=== PATIENT | female | born 1960 | race Caucasian/White ===

== ENCOUNTER → 2016-07-12 | Outpatient (CLI) | payer BC ==
--- NOTE | 2016-07-12 15:28 | CARD ---
APPROVED REPORT EXAM: Two-dimensional and M-mode echocardiogram with Doppler and color Doppler. Other Information Quality : Good INDICATION HX of Obstructive Sleep Apnea 2D DIMENSIONS RVDd3.2 (2.9-3.5cm)Left Atrium(2D)3.2 (1.6-4.0cm) IVSd1.2 (0.7-1.1cm)Aortic Root(2D)2.8 (2.0-3.7cm) LVDd3.0 (3.9-5.9cm)LVOT Diameter2.0 (1.8-2.4cm) PWd1.2 (0.7-1.1cm)LVDs2.4 (2.5-4.0cm) FS (%) 20.0 %SV15.2 ml LVEF(%)60.0 (>50%) Aortic Valve AoV Peak John Paul.129.3cm/sAoV VTI23.1cm AO Peak GR.6.7mmHgLVOT Peak John Paul.121.8cm/s LVOT VTI 22.51cmAO Mean GR.3mmHg ABIOLA (VMAX)2.33vm4FMX (VTI)3.03cm2 Mitral Valve MV E Hpwjbthg25.5cm/sMV DECEL [id number] MV A Vdppntki93.0cm/sE/A Ratio0.7 Tricuspid Valve TR P. Qcgtfvkz682hf/sRAP [id number] TR Peak Gr.69lyBcCWIS52vmBk LEFT VENTRICLE The left ventricle is normal size. There is mild concentric left ventricular hypertrophy. The left ve ntricular systolic function is normal. The Ejection Fraction is 55-60%. There is normal LV segmental wall motion. Transmitral Doppler flow pattern is Grade I-abnormal relaxation pattern. RIGHT VENTRICLE The right ventricle is normal size. The right ventricular systolic function is normal. ATRIA The left atrium size is normal. The right atrium size is normal. The interatrial septum is intact wit h no evidence for an atrial septal defect or patent foramen ovale as noted on 2-D or Doppler imaging. AORTIC VALVE The aortic valve is normal in structure and function. Doppler and Color Flow revealed trace aortic re gurgitation. There is no significant aortic valvular stenosis. MITRAL VALVE The mitral valve is normal in structure and function. There is no evidence of mitral valve prolapse. There is no mitral valve stenosis. Doppler and Color-flow revealed trace mitral regurgitation. TRICUSPID VALVE The tricuspid valve is normal in structure and function. Doppler and Color Flow revealed trace to mil d tricuspid regurgitation. The PA pressure was estimated at 24 mmHg. There is no tricuspid valve sten osis. PULMONIC VALVE The pulmonary valve is normal in structure and function. Doppler and Color Flow revealed no pulmonic valvular regurgitation. There is no pulmonic valvular stenosis. GREAT VESSELS The aortic root is normal in size. The ascending aorta is normal in size. The IVC is normal in size a nd collapses >50% with inspiration. PERICARDIAL EFFUSION There is no evidence of significant pericardial effusion. Critical Notification Critical Value: No <Conclusion> The left ventricular systolic function is normal. The Ejection Fraction is 55-60%. There is normal LV segmental wall motion. Transmitral Doppler flow pattern is Grade I-abnormal relaxation pattern. Trace aortic regurgitation. Trace mitral regurgitation. Trace to mild tricuspid regurgitation. The PA pressure was estimated at 24 mmHg. There is no evidence of significant pericardial effusion.
== END | disposition home or self-care (01) ==
LOC: ECHO 10:20
PROVIDERS: ATTEND Internal Medicine Cardiovascular Disease
DX: G47.33 Obstructive sleep apnea (adult) (pediatric) (principal); I08.3 Combined rheumatic disorders of mitral, aortic and tricuspid valves
CPT/HCPCS: 93306

== ENCOUNTER 2016-08-28 15:22 | Emergency (ER) | payer BC ==
[~2016-08-28] VITALS: Ht 162.6 cm; Wt 78.5 kg
[2016-08-28 15:25] VITALS: BP 132/76
[2016-08-28] MEDS ORDERED: ASPI-630 PO (15:52)
[2016-08-28] MEDS ORDERED: paxil (15:52)
[2016-08-28] MEDS ORDERED: fish oil (15:52)
[2016-08-28] MEDS ORDERED: CETI10TA22 PO (15:53)
[2016-08-28] MEDS ORDERED: crestor (15:53)
[2016-08-28] MEDS ORDERED: xanax (15:53)
[2016-08-28] MEDS ORDERED: synthroid (15:54)
[2016-08-28] MEDS ORDERED: LIDOCAINE 2% 20 ML VIAL. IJ ONE (16:30)
[2016-08-28] MEDS: ONDANSETRON ODT 4 MG TAB.RAPDIS PO ONE (16:46)
[2016-08-28] MEDS ORDERED: BACI3.5O8 OS (16:47)
--- NOTE | 2016-08-28 16:47 | PHYS DOC ---
Past History Past Medical History: Anxiety, Depression, High Cholesterol, Hypothyroid, Other Past Surgical History: , Hysterectomy, Other Additional Smoking Information: quit in May Alcohol Use: Occasionally Additional Alcohol Information: 2-3 beers a couple of times a week Drug Use: None Adult General Chief Complaint Chief Complaint: UPPER EXTREMITY PAIN HPI HPI Impression is a pleasant 56 showed female who was changing a light switch at home when she forgot that she had turned back the electricity and when she pushed the plate switch into place she sustained a mild shock to the ring finger on the right hand. Immediately she began feeling pain or burning sensation she saw blood and a meal he came to the emergency department. She was mildly nauseous at the sight of blood felt some tingling in her hand and arm. Pain was not controlled with direct pressure which one to recent question return to the emergency department for an evaluation. Patient presently is about a 3 out of 10 on exam patient's tetanus shot is up-to-date. Review of Systems Review of Systems Constitutional: Denies fever or chills [] Eyes: Denies change in visual acuity, redness, or eye pain [] HENT: Denies nasal congestion or sore throat [] Respiratory: Denies cough or shortness of breath [] Cardiovascular: No additional information not addressed in HPI [] GI: Denies abdominal pain, nausea, vomiting, bloody stools or diarrhea [] : Denies dysuria or hematuria [] Musculoskeletal: Only complaint is Cerner finger pain on her right hand Integument: Denies rash or skin lesions [] Neurologic: Denies headache, focal weakness or sensory changes [] Endocrine: Denies polyuria or polydipsia [] Current Medications Current Medications Current Medications Medications (Trade) Dose Ordered Sig/Yelitza Start Time Stop Time Status Last Admin Dose Admin Lidocaine HCl 20 ml 1X ONCE 08/28/16 16:30 08/28/16 16:31 DC Ondansetron HCl (Zofran Odt) 4 mg 1X ONCE 08/28/16 16:30 08/28/16 16:31 DC Allergies Allergies Allergies Coded Allergies Type Severity Reaction Last Updated Verified benzyl alcohol Allergy Intermediate 08/28/16 Yes Physical Exam Physical Exam Constitutional: Well developed, well nourished, no acute distress, non-toxic appearance. [] HENT: Normocephalic, atraumatic, bilateral external ears normal, oropharynx moist, no oral exudates, nose normal. [] Cardiovascular:Heart rate regular rhythm, no murmur [] Lungs & Thorax: Bilateral breath sounds clear to auscultation [] Skin: Warm, dry, no erythema, no rash. Small avulsion injury distal tip of the right ring finger. +2 capillary refill +2 peripheral pulses noted there is no singed tissue there is no soot tissue is blanchable. Back: No tenderness, no CVA tenderness. [] Extremities: No tenderness, no cyanosis, no clubbing, ROM intact, no edema. [] Neurologic: Alert and oriented X 3, normal motor function, normal sensory function, no focal deficits noted. [] Psychologic: Affect normal, judgement normal, mood normal. Liver anxious Current Patient Data Vital Signs Vital Signs Date Time Temp Pulse Resp B/P (MAP) Pulse Ox O2 Delivery O2 Flow Rate FiO2 08/28/16 15:25 98.9 75 22 94 Room Air EKG EKG [] Radiology/Procedures Radiology/Procedures [] Course & Med Decision Making Course & Med Decision Making Pertinent Labs and Imaging studies reviewed. (See chart for details) patient with a small injury to the ring finger on the right hand consistent with an avulsion injury as opposed to electrical burn. This was 110 V injury which would lend itself possibly to an early compartment syndrome there is no obvious injury noted from a burn. The compartments are soft there is of compartment syndrome at this time. Peripheral pulses are intact patient's good range of motion with no evidence of a neurovascular bundle each of the fingers. Patient has normal sensation normal or focal pulses even along the right upper extremity. EKG done at 3:53 PM 08/28/2016 demonstrates no acute injury QTC is within normal limits at 438 TN interval is normal at 168 qrs normal 80 there is no evidence of a lateral disturbance normal EKG read by Dr. Roberts. At this point patient and her finger repaired verbal consent was given for small avulsion injury to the right ring finger. After digital block was placed using a pocket 2 mL of 2% lidocaine at the MCP joint on the lower surface of the hand single-point. Patient great anesthesia. Patient is given cleansed before and his seizures introduced as well as the finger was cleansed with chlorhexidine and Betadine. Wound was explored for foreign bodies there is none noted. Wound was closed using 5. 0 nylon 4 interrupted sutures were placed to hold the avulsion flap injury in place. Bleeding was well-controlled with direct pressure and with suture placement. sHe tolerated procedure well nourished, medications. Patient had the wound and splinted and dressed with Betadine and a clean dressing. Impression: Avulsion injury of the flap, possible low voltage O burn. Laceration repaired. No evidence of compartment syndrome on physical exam although we did talk about prior to her discharge. Disposition. PCP follow-up in 10 days for wound reevaluation and suture removal. Given precautions for compartment she him and infection. Immunizations up-to-date no antibiotics were needed topical wound care was described. [] Dragon Disclaimer Dragon Disclaimer This chart was dictated in whole or in part using Voice Recognition software in a busy, high-work load, and often noisy Emergency Department environment. It may contain unintended and wholly unrecognized errors or omissions. Departure Departure: Impression: Primary Impression: Electrical burn of skin Additional Impressions: Avulsion, skin Finger injury Disposition: HOME, SELF-CARE Condition: IMPROVED Referrals: LINDA HOLLAND MD (PCP) Patient Instructions: Electrical Burn, Sutured Wound Care Additional Instructions: Is return immediately for any decreased sensation in the finger, signs of infection or. Increased pain out of proportion with swelling. Please return for any question concerns or might have about your wound care. Scripts Bacitracin (BACITRACIN) 3.5 Gm Oint...g. 1 HARISH OS TID, #3.5 GM Prov: JUNIOR ROBERTS MD 08/28/16 Problem Qualifiers JUNIOR ROBERTS MD Aug 28, 2016 16:47
[2016-08-28] MEDS ORDERED: BACITRACIN ZINC TOPICAL OINT PACKET. TP SCH (17:00)
--- NOTE | 2016-08-28 18:03 | EKG ---
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
== END 2016-08-28 16:50 | disposition home or self-care (01) ==
LOC: ER 15:22
DX: S61.304A Unspecified open wound of right ring finger with damage to nail, initial encounter (principal); T75.01XA Shock due to being struck by lightning, initial encounter; E03.9 Hypothyroidism, unspecified; E78.00 Pure hypercholesterolemia, unspecified; Z88.8 Allergy status to other drugs, medicaments and biological substances; W86.8XXA Exposure to other electric current, initial encounter; Z87.891 Personal history of nicotine dependence; Y93.89 Activity, other specified; Y99.8 Other external cause status; Y92.89 Other specified places as the place of occurrence of the external cause
CPT/HCPCS: 12001; 93005; 99283; Q0162

== ENCOUNTER → 2017-10-04 | Outpatient (CLI) | payer BC ==
[~2017-10-04] MED LIST: ASPI-630 PO; BACI3.5O8 OS; CETI10TA22 PO; crestor; fish oil; paxil; synthroid; xanax
--- NOTE | 2017-10-04 10:05 | RAD ---
Right upper quadrant abdominal ultrasound, 10/04/2017: HISTORY: Epigastric pain and nausea The gallbladder is within normal limits in size. There is no sonographic evidence of cholelithiasis. The gallbladder puri are not thickened. The common hepatic duct is of normal caliber. The visualized portions of the liver, pancreas and right kidney are unremarkable. IMPRESSION: No significant abnormality is detected. Electronically signed by: Enrrique Moncada MD (10/04/2017 10:02 AM) [facility]
[2017-10-04] MEDS: SINCALIDE 1.6 MCG in IV NORMAL SALINE 50ML 30 ML IV ONE (10:54)
--- NOTE | 2017-10-04 11:57 | RAD ---
Radionuclide hepatobiliary scan with gallbladder ejection fraction, 10/04/2017: HISTORY: Intermittent abdominal pain Following IV injection of 5.5 mCi of technetium 99m Choletec there was prompt uptake of the radionuclide from the blood stream by the liver. Bile duct and gallbladder activity is evident at 10 minutes. Small bowel activity developed at 35 minutes. Additional imaging was then performed following IV injection of 1.6 mcg of cholecystokinin. There is vigorous gallbladder emptying with the gallbladder ejection fraction calculated at 77 percent. IMPRESSION: 1. Normal radionuclide hepatobiliary scan. 2. The gallbladder ejection fraction is 77 percent. Electronically signed by: Enrrique Moncada MD (10/04/2017 11:54 AM) [facility]
== END | disposition home or self-care (01) ==
LOC: US 07:42
PROVIDERS: ATTEND Internal Medicine Gastroenterology
DX: R10.13 Epigastric pain (principal); R11.0 Nausea; E78.00 Pure hypercholesterolemia, unspecified; E03.9 Hypothyroidism, unspecified; Z87.891 Personal history of nicotine dependence
CPT/HCPCS: 76705; 78226; 96374; 96375; A9537; J2805